=== PATIENT | male | born 2000 | race Caucasian/White ===

== ENCOUNTER 2024-02-18 23:24 | Emergency (ER) | payer OTHER ==
[2024-02-18 23:32] VITALS: BP 145/77; PULSE 84; RESP 16; TEMP 98.2; BMI 27.1
[2024-02-18] MEDS ORDERED: LIDOCAINE 4% PATCH TP ONE (23:58)
[2024-02-18] MEDS ORDERED: KETOROLAC TROMETHAMINE 30 MG/1 ML VIAL ONE (23:59)
[2024-02-18] MEDS ORDERED: METHOCARBAMOL 500 MG TABLET ONE (23:59)
[2024-02-19] MEDS: KETOROLAC TROMETHAMINE 30 MG/1 ML VIAL IM ONE (00:07)
[2024-02-19] MEDS: METHOCARBAMOL 750 MG TAB PO ONE (00:07)
[2024-02-19] MEDS: LIDOCAINE 4% PATCH TP ONE (00:07)
[2024-02-19] MEDS: LIDOCAINE PATCH REMOVAL MC SCH (00:14)
== END 2024-02-19 01:15 | disposition home or self-care (01) ==
LOC: JER 23:24
PROC: 3E0133Z Introduction of Anti-inflammatory into Subcutaneous Tissue, Percutaneous Approach (ICD-10-PCS; principal; 2024-02-19)
DX: M25.551 Pain in right hip (principal)
CPT/HCPCS: 99284-25

== ENCOUNTER 2024-05-30 06:35 | Emergency (ER) | payer OTHER ==
[2024-05-30 07:01] VITALS: BP 123/69; PULSE 74; RESP 16; TEMP 98.4; BMI 27.1
[2024-05-30] MEDS ORDERED: ACETAMINOPHEN 325 MG TABLET (FP) ONE (10:39)
[2024-05-30] MEDS: ACETAMINOPHEN 325 MG TABLET (FP) PO ONE (10:40)
== END 2024-05-30 12:00 | disposition home or self-care (01) ==
LOC: JER 06:35
DX: R05.9 Cough, unspecified (principal); J06.9 Acute upper respiratory infection, unspecified; R51.9 Headache, unspecified; Z20.822 Contact with and (suspected) exposure to COVID-19
CPT/HCPCS: 0241U-QW; 71046-TC-FY; 99284-25

== ENCOUNTER 2024-06-05 03:42 | Emergency (ER) | payer OTHER ==
[2024-06-05 03:46] VITALS: TEMP 98.6; BMI 27.1
[2024-06-05] MEDS ORDERED: ONDANSETRON 4 MG/2 ML VIAL ONE (04:16)
[2024-06-05] MEDS: ONDANSETRON 4 MG/2 ML VIAL IVPUSH ONE (04:21)
[2024-06-05] MEDS: SODIUM CHLORIDE 0.9% 500 ML INFUS.BAG IV ONE (04:21)
[2024-06-05 04:37] LABS: HEMATOCRIT 51.4 % (35.4-49); HEMOGLOBIN 17.4 GM/dL (11.7-16.9); MCH 29.5 pg (25.7-33.7); MCHC 33.8 g/dl (32.0-35.9); MEAN CELL VOLUME 87.3 fl (80-96); MEAN PLT VOLUME 10.4 fl (7.5-11.1); PLATELET COUNT 266 10^3/uL (134-434); RBC 5.89 M/mm3 (4.00-5.60); RDW 12.8 % (11.9-15.9); WHITE BLOOD COUNT 21.4 K/mm3 (4.0-10.0)
[2024-06-05 05:05] LABS: POTASSIUM 4.3 mmol/L (3.5-5.1)
[2024-06-05 05:08] LABS: ALBUMIN 4.6 g/dl (3.4-5.0); BLOOD UREA NITROGEN 24.4 mg/dL (7-18); CALCIUM 9.8 mg/dL (8.5-10.1)
[2024-06-05 05:12] LABS: CREATININE 0.8 mg/dL (0.55-1.3)
[2024-06-05 05:13] LABS: BILIRUBIN,TOTAL 0.7 mg/dL (0.2-1)
[2024-06-05 05:54] VITALS: BP 134/76; PULSE 66; RESP 18
== END 2024-06-05 06:25 | disposition home or self-care (01) ==
LOC: JER 03:42
PROC: 3E033GC Introduction of Other Therapeutic Substance into Peripheral Vein, Percutaneous Approach (ICD-10-PCS; principal; 2024-06-05)
DX: R11.2 Nausea with vomiting, unspecified (principal); Z20.822 Contact with and (suspected) exposure to COVID-19
CPT/HCPCS: 0241U-QW; 36415; 80053; 83690; 85025; 99284-25